=== PATIENT | male | born 1950 | race Caucasian/White ===

== ENCOUNTER → 2017-01-10 | Outpatient (CLI) | payer MEDICARE, OTHER ==
[~2017-01-10] MED LIST: ASPI-515 PO; ATOR10TA9 PO; ATOR40TA78 PO; CLOP75TA PO; GLYB5TAB3 PO; LISI-170 PO; OMNIPAQUE 350 MG/ML, 100ML BOTTLE ONE
== END | disposition home or self-care (01) ==
LOC: CFH 14:04
PROVIDERS: ATTEND Psychiatry & Neurology Neurology
DX: I65.23 Occlusion and stenosis of bilateral carotid arteries (principal)
CPT/HCPCS: 70496; 70498; 82565; Q9967

== ENCOUNTER → 2017-03-21 | Outpatient (CLI) | payer MEDICARE, OTHER ==
[~2017-03-21] MED LIST changes: +DAPA10TA PO
== END | disposition home or self-care (01) ==
LOC: RAD 14:17
DX: C15.9 Malignant neoplasm of esophagus, unspecified (principal); E11.9 Type 2 diabetes mellitus without complications; J84.10 Pulmonary fibrosis, unspecified; R16.0 Hepatomegaly, not elsewhere classified; R59.0 Localized enlarged lymph nodes; M51.37 Other intervertebral disc degeneration, lumbosacral region; I70.0 Atherosclerosis of aorta; N28.1 Cyst of kidney, acquired; S22.42XA Multiple fractures of ribs, left side, initial encounter for closed fracture; X58.XXXA Exposure to other specified factors, initial encounter; Y93.89 Activity, other specified; Y92.89 Other specified places as the place of occurrence of the external cause; Y99.8 Other external cause status
CPT/HCPCS: 71260; 74160; Q9967

== ENCOUNTER → 2017-03-26 | Outpatient (CLI) | payer MEDICARE, OTHER ==
[~2017-03-26] MED LIST changes: -OMNIPAQUE 350 MG/ML, 100ML BOTTLE ONE
== END | disposition home or self-care (01) ==
LOC: ROC 09:58
PROVIDERS: ATTEND Radiology Radiation Oncology
DX: C15.9 Malignant neoplasm of esophagus, unspecified (principal); K21.9 Gastro-esophageal reflux disease without esophagitis; I10 Essential (primary) hypertension; E11.9 Type 2 diabetes mellitus without complications
CPT/HCPCS: G0463

== ENCOUNTER 2017-04-01 11:38 | Day surgery (SDC) | payer MEDICARE, OTHER ==
[~2017-04-01] VITALS: Ht 182.9 cm; Wt 75.3 kg
[2017-04-01] MEDS ORDERED: LACTATED RINGERS 1,000 ML IV SCH (12:01)
[2017-04-01 12:19] VITALS: BP 102/70
[2017-04-01 13:14] LABS: ALANINE AMINOTRANSFERASE 27 U/L (12-78); ALBUMIN 3.4 g/dL (3.4-5.0); ANION GAP 7 mmol/L (5-15); CALCIUM 8.7 mg/dL (8.5-10.1); CHLORIDE 104 mmol/L (98-107); CREATININE 0.87 mg/dL (0.7-1.3)
[2017-04-01 13:16] LABS: ALKALINE PHOSPHATASE 124 U/L (45-117); BILIRUBIN,TOTAL 0.4 mg/dL (0.2-1.0); TOTAL PROTEIN 7.3 g/dL (6.4-8.2)
[2017-04-01] MEDS ORDERED: FENTANYL PF 100 MCG/2ML ONE (13:23)
[2017-04-01] MEDS ORDERED: PROPOFOL 10 MG/ML, 20ML ONE ×2 (13:23→14:27)
[2017-04-01] MEDS ORDERED: OXYcodone 5 MG/5 ML ORAL.SOL UDC PO PRN (13:30)
[2017-04-01] MEDS ORDERED: ACETAMINOPHEN 325 MG TABLET PO PRN (13:30)
[2017-04-01] MEDS ORDERED: LABETALOL 5MG/ML, 20ML IV PRN (13:30)
[2017-04-01] MEDS ORDERED: METOPROLOL 1 MG/ML, 5ML IV PRN (13:30)
[2017-04-01] MEDS ORDERED: hydrALAzine 20 MG/ML, 1ML IV PRN (13:30)
[2017-04-01] MEDS ORDERED: ONDANSETRON 2MG/ML, 2ML IVPush PRN (13:30)
[2017-04-01] MEDS ORDERED: EPHEDRINE 50 MG/ML, 1ML IVPush PRN (13:30)
[2017-04-01] MEDS ORDERED: FENTANYL PF 100 MCG/2ML IV PRN (13:30)
[2017-04-01] MEDS ORDERED: ALBUTEROL SULFATE 2.5 MG/3 ML NPPB PRN (13:30)
== END 2017-04-01 16:50 | disposition home or self-care (01) ==
LOC: OUT 11:38
PROVIDERS: ATTEND Internal Medicine
DX: R13.10 Dysphagia, unspecified (principal); I10 Essential (primary) hypertension; E11.9 Type 2 diabetes mellitus without complications; Z87.891 Personal history of nicotine dependence; Z86.010 Personal history of colon polyps; Z86.718 Personal history of other venous thrombosis and embolism
CPT/HCPCS: 36415; 43266; 71045; 76000; 80053; 82962; C1725; C1769; C1876; J2704; J3010

== ENCOUNTER → 2017-04-09 | Outpatient (CLI) | payer MEDICARE, OTHER | END | disposition home or self-care (01) | LOC: CFH 09:52 | PROVIDERS: ATTEND Radiology Radiation Oncology | DX: C79.51 Secondary malignant neoplasm of bone (principal); C15.5 Malignant neoplasm of lower third of esophagus; M16.0 Bilateral primary osteoarthritis of hip; N40.0 Benign prostatic hyperplasia without lower urinary tract symptoms ==

== ENCOUNTER → 2017-04-11 | Outpatient (CLI) | payer MEDICARE, OTHER ==
[~2017-04-11] MED LIST changes: +CHOL200024 PO; +SERT100T PO
[2017-04-11 10:52] LABS: ALANINE AMINOTRANSFERASE 27 U/L (12-78); ALBUMIN 3.3 g/dL (3.4-5.0); ANION GAP 8 mmol/L (5-15); CALCIUM 8.4 mg/dL (8.5-10.1); CHLORIDE 107 mmol/L (98-107); CREATININE 0.84 mg/dL (0.7-1.3)
[2017-04-11 10:54] LABS: ALKALINE PHOSPHATASE 104 U/L (45-117); BILIRUBIN,TOTAL 0.3 mg/dL (0.2-1.0); TOTAL PROTEIN 7.3 g/dL (6.4-8.2)
== END | disposition home or self-care (01) ==
LOC: STAR 09:39
PROVIDERS: ATTEND Surgery
DX: Z01.818 Encounter for other preprocedural examination (principal); I45.10 Unspecified right bundle-branch block
CPT/HCPCS: 36415; 80053; 93005

== ENCOUNTER 2017-04-15 16:04 | Inpatient (IN) | payer MEDICARE, OTHER ==
[~2017-04-15] VITALS: Ht 180.3 cm; Wt 78.0 kg
[2017-04-15] MEDS ORDERED: SODIUM CHLORIDE 0.9% 1,000 ML IV ONE (16:07)
[2017-04-15] MEDS ORDERED: SODIUM CHLORIDE FLUSH 10ML SYR IVF ONE (16:30)
[2017-04-15] MEDS ORDERED: SODIUM CHLORIDE 0.9% 1,000ML IVBOLUS ONE (16:30)
[2017-04-15 17:00] LABS: ALBUMIN 3.2 g/dL (3.4-5.0); ANION GAP 8 mmol/L (5-15); CALCIUM 8.4 mg/dL (8.5-10.1); CHLORIDE 107 mmol/L (98-107); CREATININE 0.83 mg/dL (0.7-1.3)
[2017-04-15 17:04] LABS: TROPONIN I 0.099 ng/mL (0.000-0.045)
[2017-04-15 17:22] LABS: BASOPHILS # (AUTO) 0.02 x10^3/uL (0-0.1); BASOPHILS % (AUTO) 0 % (0-1); EOSINOPHILS % (AUTO) 0 % (1-7); LYMPHOCYTES # (AUTO) 1.08 x10^3/uL (1-3.4); LYMPHOCYTES % (AUTO) 6 % (22-44); MD MORPH REVIEW ONLY; MEAN CORPUSCULAR HGB CONC 31.2 g/dL (33.2-36.2); MEAN CORPUSCULAR VOLUME 64.3 fL (81-97); MEAN PLATELET VOLUME 6.8 fL (7.4-10.4); MONOCYTES % (AUTO) 5 % (2-9); NEUTROPHILS # (AUTO) 16.02 x10^3/uL (1.8-6.8); NEUTROPHILS % (AUTO) 89 % (42-75); PLATELET COUNT 471 x10^3/uL (130-400); RED BLOOD COUNT 5.02 x10^6/uL (4.38-5.82); RED CELL DISTRIBUTION WIDTH 20.4 % (9.4-14.8)
[2017-04-15 17:23] LABS: ANISOCYTOSIS 1+; MICROCYTOSIS 1+
[2017-04-15 17:24] LABS: <PLATELET ESTIMATE> ADEQUATE; <PLT MORPHOLOGY> NORMAL PLT MORPH; OVALOCYTES 1+; POLYCHROMASIA 1+; SCHISTOCYTES 1+
[2017-04-15] MEDS ORDERED: ASPIRIN 81 MG TABLET CHEW PO ONE (17:30)
[2017-04-15] MEDS ORDERED: ASPIRIN 81 MG TABLET CHEW ONE (18:05)
[2017-04-15] MEDS ORDERED: OMNIPAQUE 350 MG/ML, 100ML BOTTLE ONE (18:07)
[2017-04-15] MEDS ORDERED: POLYETHYLENE GLYCOL 17 GM PACKET PO PRN (22:30)
[2017-04-15] MEDS ORDERED: ENALAPRILAT 1.25 MG/ML, 2ML IVPush PRN (22:30)
[2017-04-15] MEDS ORDERED: hydrALAzine 20 MG/ML, 1ML IVPush PRN (22:30)
[2017-04-15] MEDS ORDERED: BISACODYL 10 MG SUPP PR PRN (22:30)
[2017-04-15] MEDS ORDERED: morphine SULFATE 10 MG/ML, 1ML IVPush PRN (22:30)
[2017-04-15] MEDS ORDERED: PROMETHAZINE 25 MG/ML, 1ML IM PRN (22:30)
[2017-04-15 23:12] VITALS: BP 117/70
[2017-04-15] MEDS: HEPARIN 5,000 UNITS/ML, 1ML SQ SCH (23:15)
[2017-04-15] MEDS: SODIUM CHLORIDE 0.9% 1,000 ML IV SCH (23:15)
[2017-04-16 00:12] LABS: HEMOGLOBIN A1C 6.3 % (4.2-6.3)
[2017-04-16 00:14] LABS: FREE T4 (FREE THYROXINE) 1.14 ng/dL (0.76-1.46); THYROID STIMULATING HORMONE 1.32 mIU/L (0.358-3.740)
[2017-04-16 00:22] VITALS: BP 121/74
[2017-04-16] MEDS: OXYcodone IR 5MG TABLET PO PRN ×3 (00:25→15:02)
[2017-04-16 03:30] LABS: MEAN CORPUSCULAR HEMOGLOBIN 19.9 pg (27.5-34.5); MEAN CORPUSCULAR HGB CONC 31.1 g/dL (33.2-36.2); MEAN CORPUSCULAR VOLUME 63.9 fL (81-97); MEAN PLATELET VOLUME 6.7 fL (7.4-10.4); PLATELET COUNT 437 x10^3/uL (130-400); RED BLOOD COUNT 4.69 x10^6/uL (4.38-5.82); RED CELL DISTRIBUTION WIDTH 20.5 % (9.4-14.8)
[2017-04-16 03:38] LABS: ALANINE AMINOTRANSFERASE 22 U/L (12-78); ANION GAP 5 mmol/L (5-15); CALCIUM 8.2 mg/dL (8.5-10.1); CHLORIDE 108 mmol/L (98-107); CHOLESTEROL, TOTAL 131 mg/dL (140-239); CREATININE 0.82 mg/dL (0.7-1.3)
[2017-04-16 03:40] LABS: ALKALINE PHOSPHATASE 93 U/L (45-117); BILIRUBIN,TOTAL 0.4 mg/dL (0.2-1.0); CHOL/HDL RATIO 2.9; HDL CHOL % 34 % (26-37); HDL CHOLESTEROL (DIRECT) 45 mg/dL (40-60); LDL CHOLESTEROL,CALCULATED 64 mg/dL (54-169); LDL/HDL RATIO 1.4 (0.5-3.0); TOTAL PROTEIN 6.6 g/dL (6.4-8.2); TRIGLYCERIDES 109 mg/dL (50-200); VLDL CHOLESTEROL 22 mg/dL (0-25)
[2017-04-16 03:41] LABS: TROPONIN I 0.175 ng/mL (0.000-0.045)
[2017-04-16 04:30] LABS: BASOPHILS % (AUTO) 0 % (0-1); EOSINOPHILS % (AUTO) 1 % (1-7); LYMPHOCYTES # (AUTO) 2.47 x10^3/uL (1-3.4); LYMPHOCYTES % (AUTO) 17 % (22-44); MONOCYTES # (AUTO) 1.45 x10^3/uL (0.2-0.8); MONOCYTES % (AUTO) 10 % (2-9); NEUTROPHILS # (AUTO) 10.86 x10^3/uL (1.8-6.8); NEUTROPHILS % (AUTO) 73 % (42-75)
[2017-04-16 04:31] LABS: BASOPHILS # (AUTO) 0.01 x10^3/uL (0-0.1); EOSINOPHILS # (AUTO) 0.21 x10^3/uL (0-0.4); MD SCAN
[2017-04-16] MEDS: HEPARIN 5,000 UNITS/ML, 1ML SQ SCH ×3 (06:30→22:43)
[2017-04-16 07:20] LABS: MICROSCOPIC NOT IND
[2017-04-16 07:23] LABS: CULTURE INDICATED? NO
[2017-04-16] MEDS: SODIUM CHLORIDE 0.9% 1,000 ML IV SCH (08:10)
[2017-04-16] MEDS: SENNA/DOCUSATE TABLET PO SCH (08:10)
[2017-04-16 08:49] VITALS: BP 124/70
[2017-04-16 10:49] LABS: TROPONIN I 0.107 ng/mL (0.000-0.045)
[2017-04-16 14:51] VITALS: BP 144/89
[2017-04-16 18:36] VITALS: BP 164/98
[2017-04-17 01:04] VITALS: BP 146/84
[2017-04-17] MEDS: OXYcodone IR 5MG TABLET PO PRN (03:15)
[2017-04-17 05:02] LABS: MEAN CORPUSCULAR HEMOGLOBIN 19.7 pg (27.5-34.5); MEAN CORPUSCULAR VOLUME 63.6 fL (81-97); MEAN PLATELET VOLUME 7.3 fL (7.4-10.4); PLATELET COUNT 427 x10^3/uL (130-400); RED BLOOD COUNT 5.12 x10^6/uL (4.38-5.82); RED CELL DISTRIBUTION WIDTH 20.8 % (9.4-14.8)
[2017-04-17 05:10] LABS: ANION GAP 9 mmol/L (5-15); CALCIUM 8.8 mg/dL (8.5-10.1); CHLORIDE 106 mmol/L (98-107)
[2017-04-17 05:11] LABS: CREATININE 0.69 mg/dL (0.7-1.3)
[2017-04-17 05:41] LABS: BASOPHILS # (AUTO) 0.04 x10^3/uL (0-0.1); BASOPHILS % (AUTO) 0 % (0-1); EOSINOPHILS # (AUTO) 0.29 x10^3/uL (0-0.4); EOSINOPHILS % (AUTO) 2 % (1-7); LYMPHOCYTES # (AUTO) 1.73 x10^3/uL (1-3.4); LYMPHOCYTES % (AUTO) 13 % (22-44); MD SCAN; MONOCYTES # (AUTO) 1.29 x10^3/uL (0.2-0.8); MONOCYTES % (AUTO) 10 % (2-9); NEUTROPHILS # (AUTO) 9.56 x10^3/uL (1.8-6.8); NEUTROPHILS % (AUTO) 74 % (42-75)
[2017-04-17] MEDS: HEPARIN 5,000 UNITS/ML, 1ML SQ SCH ×2 (06:11→16:01)
[2017-04-17 07:18] VITALS: BP 138/88
[2017-04-17] MEDS: ONDANSETRON 2MG/ML, 2ML IVPush PRN ×2 (09:43→16:01)
[2017-04-17] MEDS: SENNA/DOCUSATE TABLET PO SCH (09:43)
[2017-04-17 10:23] LABS: INTERNATIONAL NORMALIZED RATIO 1.16 (0.93-1.1)
[2017-04-17 13:59] VITALS: BP 133/85
[2017-04-17] MEDS ORDERED: MAGNESIUM CITRATE 300ML ORAL SOL PO ONE (14:00)
[2017-04-17] MEDS: BISACODYL 10 MG SUPP PR SCH (15:14)
[2017-04-17 19:19] VITALS: BP 159/106
[2017-04-17 20:13] VITALS: BP 102/63
[2017-04-17 20:30] VITALS: BP 153/82
[2017-04-18] MEDS: HEPARIN 5,000 UNITS/ML, 1ML SQ SCH ×3 (00:36→13:06)
[2017-04-18 00:40] VITALS: BP 159/98
[2017-04-18] MEDS: ONDANSETRON 2MG/ML, 2ML IVPush PRN (01:58)
[2017-04-18 07:05] VITALS: BP 136/87
[2017-04-18] MEDS: SENNA/DOCUSATE TABLET PO SCH (08:11)
[2017-04-18] MEDS: BISACODYL 10 MG SUPP PR SCH (08:19)
[2017-04-18] MEDS ORDERED: METOCLOPRAMIDE 5 MG/ML, 2ML IVPush ONE (10:00)
[2017-04-18 13:10] VITALS: BP 129/87
[2017-04-18] MEDS: PANTOPRAZOLE 40 MG IV IVPush SCH (13:16)
[2017-04-18] MEDS ORDERED: NALOXONE 1 MG/ML, 2ML ONE (13:42)
[2017-04-18] MEDS ORDERED: FENTANYL PF 100 MCG/2ML ONE (13:42)
[2017-04-18] MEDS ORDERED: FLUMAZENIL 0.1 MG/1 ML, 5ML ONE (13:42)
[2017-04-18] MEDS ORDERED: MIDAZOLAM 1 MG/ML, 5ML ONE ×2 (13:42)
[2017-04-18] MEDS ORDERED: LIDOCAINE 1%, 20ML ONE (13:51)
[2017-04-18] MEDS: D5%-0.45NACL+KCL 20MEQ 1,000 ML IV SCH (16:11)
[2017-04-18 19:06] VITALS: BP 149/93
[2017-04-19 00:19] VITALS: BP 143/92
[2017-04-19] MEDS: HEPARIN 5,000 UNITS/ML, 1ML SQ SCH (00:30)
[2017-04-19] MEDS: PANTOPRAZOLE 40 MG IV IVPush SCH ×2 (00:57→13:24)
[2017-04-19] MEDS: D5%-0.45NACL+KCL 20MEQ 1,000 ML IV SCH ×2 (05:01→21:04)
[2017-04-19 05:14] LABS: ANION GAP 6 mmol/L (5-15); CHLORIDE 105 mmol/L (98-107)
[2017-04-19 05:19] LABS: CREATININE 1.08 mg/dL (0.7-1.3)
[2017-04-19 05:39] LABS: MEAN CORPUSCULAR HEMOGLOBIN 19.9 pg (27.5-34.5); MEAN CORPUSCULAR HGB CONC 31.3 g/dL (33.2-36.2); MEAN CORPUSCULAR VOLUME 63.7 fL (81-97); MEAN PLATELET VOLUME 7.4 fL (7.4-10.4); PLATELET COUNT 469 x10^3/uL (130-400); RED BLOOD COUNT 4.95 x10^6/uL (4.38-5.82)
[2017-04-19 06:19] LABS: MD YES
[2017-04-19 06:21] LABS: ANISOCYTOSIS 2+; BAND#(MANUAL) 0.77 x10^3/uL; BANDS%(MANUAL) 3 % (0-7); LYMPH#(MANUAL) 1.81 x10^3/uL (1-3.4); LYMPHS% (MANUAL) 7 % (22-44); MICROCYTOSIS 1+; MONOS#(MANUAL) 2.32 x10^3/uL (0.3-2.7); MONOS% (MANUAL) 9 % (2-9); POLYCHROMASIA 1+; SEGS% (MANUAL) 81 % (42-75)
[2017-04-19 06:22] LABS: OVALOCYTES 1+; SCHISTOCYTES 1+
[2017-04-19 06:24] LABS: <PLATELET ESTIMATE> ADEQUATE; LARGE PLATELETS 1+
[2017-04-19 07:09] VITALS: BP 128/81
[2017-04-19] MEDS: BISACODYL 10 MG SUPP PR SCH (08:18)
[2017-04-19] MEDS: SENNA/DOCUSATE TABLET PO SCH (08:23)
[2017-04-19] MEDS ORDERED: SODIUM CHLORIDE 0.9%, 500ML IVBOLUS ONE ×2 (09:00)
[2017-04-19] MEDS ORDERED: BENZOCAINE 20% SPRAY 0.5ML ONE (11:32)
[2017-04-19] MEDS ORDERED: LIDOCAINE GEL 2%, 5ML ONE (11:32)
[2017-04-19] MEDS ORDERED: OMNIPAQUE 350 MG/ML, 100ML BOTTLE ONE (12:25)
[2017-04-19] MEDS ORDERED: VANCOMYCIN PER PHARMACY MC PRN (13:30)
[2017-04-19 13:33] VITALS: BP 130/87
[2017-04-19] MEDS ORDERED: PHARMACOKINETIC MONITORING MC PRN (14:00)
[2017-04-19] MEDS ORDERED: PHARMACOKINETIC CONSULTATION MC ONE (14:00)
[2017-04-19] MEDS: PIPERACILLIN/TAZO/PMX 3.375GM 50 ML IV SCH ×2 (14:11→21:04)
[2017-04-19] MEDS: VANCOMYCIN 1,400 MG in SODIUM CHLORIDE 0.9% 250 ML IV SCH (14:50)
[2017-04-19] MEDS: OXYcodone IR 5MG TABLET PO PRN (15:12)
[2017-04-19 18:38] VITALS: BP 118/77
[2017-04-20 01:38] VITALS: BP 102/65
[2017-04-20] MEDS: PIPERACILLIN/TAZO/PMX 3.375GM 50 ML IV SCH ×4 (01:53→21:38)
[2017-04-20] MEDS: PANTOPRAZOLE 40 MG IV IVPush SCH ×2 (01:53→14:12)
[2017-04-20 02:25] LABS: MICROSCOPIC NOT IND
[2017-04-20 02:30] LABS: CULTURE INDICATED? NO
[2017-04-20 05:09] LABS: MEAN CORPUSCULAR HGB CONC 31.2 g/dL (33.2-36.2); MEAN CORPUSCULAR VOLUME 64.3 fL (81-97); MEAN PLATELET VOLUME 7.2 fL (7.4-10.4); PLATELET COUNT 415 x10^3/uL (130-400); RED BLOOD COUNT 4.21 x10^6/uL (4.38-5.82); RED CELL DISTRIBUTION WIDTH 21.7 % (9.4-14.8)
[2017-04-20 05:16] LABS: ANION GAP 5 mmol/L (5-15); CALCIUM 8.5 mg/dL (8.5-10.1); CHLORIDE 109 mmol/L (98-107); CREATININE 0.85 mg/dL (0.7-1.3)
[2017-04-20 05:37] LABS: MD YES
[2017-04-20 05:38] LABS: BASOS#(MANUAL) 0.18 x10^3/uL (0-0.1); BASOS% (MANUAL) 1 % (0-1); EOS#(MANUAL) 0.91 x10^3/uL (0.0-0.4); EOS% (MANUAL) 5 % (1-7); LYMPH#(MANUAL) 1.27 x10^3/uL (1-3.4); LYMPHS% (MANUAL) 7 % (22-44); MONOS#(MANUAL) 1.09 x10^3/uL (0.3-2.7); MONOS% (MANUAL) 6 % (2-9); SEG#(MANUAL) 14.66 x10^3/uL (1.8-6.8); SEGS% (MANUAL) 81 % (42-75)
[2017-04-20 05:39] LABS: ANISOCYTOSIS 2+; MICROCYTOSIS 1+; OVALOCYTES 1+; POLYCHROMASIA 1+
[2017-04-20 05:42] LABS: <PLATELET ESTIMATE> ADEQUATE; <PLT MORPHOLOGY> NORMAL PLT MORPH
[2017-04-20 06:40] VITALS: BP 129/79
[2017-04-20] MEDS: SENNA/DOCUSATE TABLET PO SCH (09:00)
[2017-04-20] MEDS ORDERED: PROPOFOL 10 MG/ML, 50ML ONE (11:31)
[2017-04-20] MEDS ORDERED: PROPOFOL 10 MG/ML, 20ML ONE (11:31)
[2017-04-20] MEDS ORDERED: hydrALAzine 20 MG/ML, 1ML IV PRN (13:00)
[2017-04-20] MEDS ORDERED: MIDAZOLAM 1 MG/ML, 2ML IV PRN (13:00)
[2017-04-20] MEDS ORDERED: ONDANSETRON 2MG/ML, 2ML IVPush PRN (13:00)
[2017-04-20] MEDS ORDERED: FENTANYL PF 100 MCG/2ML IV PRN (13:00)
[2017-04-20 14:37] VITALS: BP 111/67
[2017-04-20] MEDS: BISACODYL 10 MG SUPP PR SCH (14:43)
[2017-04-20] MEDS: VANCOMYCIN 1,400 MG in SODIUM CHLORIDE 0.9% 250 ML IV SCH (14:44)
[2017-04-20] MEDS: D5%-0.45NACL+KCL 20MEQ 1,000 ML IV SCH (16:46)
[2017-04-20] MEDS: IRON SUCROSE COMPLEX 100MG/5ML IV SCH (17:40)
[2017-04-20 20:20] VITALS: BP 121/79
[2017-04-21 01:52] VITALS: BP 124/77
[2017-04-21] MEDS: PIPERACILLIN/TAZO/PMX 3.375GM 50 ML IV SCH ×3 (03:09→18:05)
[2017-04-21] MEDS: PANTOPRAZOLE 40 MG IV IVPush SCH ×2 (03:09→13:37)
[2017-04-21 05:14] LABS: MEAN CORPUSCULAR HEMOGLOBIN 20.2 pg (27.5-34.5); MEAN CORPUSCULAR HGB CONC 31.4 g/dL (33.2-36.2); MEAN CORPUSCULAR VOLUME 64.4 fL (81-97); MEAN PLATELET VOLUME 7.1 fL (7.4-10.4); PLATELET COUNT 411 x10^3/uL (130-400); RED BLOOD COUNT 4.09 x10^6/uL (4.38-5.82); RED CELL DISTRIBUTION WIDTH 20.5 % (9.4-14.8)
[2017-04-21 05:21] LABS: CHLORIDE 109 mmol/L (98-107)
[2017-04-21 05:26] LABS: ALANINE AMINOTRANSFERASE 21 U/L (12-78); ALBUMIN 2.5 g/dL (3.4-5.0); ALKALINE PHOSPHATASE 71 U/L (45-117); ANION GAP 9 mmol/L (5-15); BILIRUBIN,TOTAL 0.4 mg/dL (0.2-1.0); CALCIUM 8.1 mg/dL (8.5-10.1); CREATININE 0.76 mg/dL (0.7-1.3); TOTAL PROTEIN 6.4 g/dL (6.4-8.2)
[2017-04-21 05:50] LABS: <PLATELET ESTIMATE> INCREASED; <PLT MORPHOLOGY> NORMAL PLT MORPH; ANISOCYTOSIS 2+; BASOPHILS % (AUTO) 0 % (0-1); EOSINOPHILS # (AUTO) 0.96 x10^3/uL (0-0.4); EOSINOPHILS % (AUTO) 7 % (1-7); LYMPHOCYTES # (AUTO) 1.36 x10^3/uL (1-3.4); LYMPHOCYTES % (AUTO) 10 % (22-44); MD MORPH REVIEW ONLY; MONOCYTES # (AUTO) 1.11 x10^3/uL (0.2-0.8); MONOCYTES % (AUTO) 8 % (2-9); NEUTROPHILS # (AUTO) 9.95 x10^3/uL (1.8-6.8); NEUTROPHILS % (AUTO) 74 % (42-75); OVALOCYTES 1+; POLYCHROMASIA 1+
[2017-04-21 05:55] LABS: MICROCYTOSIS 1+
[2017-04-21 06:27] VITALS: BP 115/72
[2017-04-21] MEDS: IRON SUCROSE COMPLEX 100MG/5ML IV SCH (10:05)
[2017-04-21] MEDS: BISACODYL 10 MG SUPP PR SCH (10:06)
[2017-04-21] MEDS: SENNA/DOCUSATE TABLET PO SCH (10:06)
[2017-04-21 13:02] VITALS: BP 118/83
[2017-04-21] MEDS: VANCOMYCIN 1,400 MG in SODIUM CHLORIDE 0.9% 250 ML IV SCH (15:25)
[2017-04-21] MEDS: D5%-0.45NACL+KCL 20MEQ 1,000 ML IV SCH (15:25)
[2017-04-21 19:23] VITALS: BP 130/77
[2017-04-22 00:21] VITALS: BP 113/73
[2017-04-22] MEDS: PANTOPRAZOLE 40 MG IV IVPush SCH ×2 (00:32→15:23)
[2017-04-22] MEDS: PIPERACILLIN/TAZO/PMX 3.375GM 50 ML IV SCH ×5 (00:32→23:49)
[2017-04-22 04:52] LABS: MEAN CORPUSCULAR HEMOGLOBIN 19.8 pg (27.5-34.5); MEAN CORPUSCULAR HGB CONC 30.8 g/dL (33.2-36.2); MEAN CORPUSCULAR VOLUME 64.3 fL (81-97); MEAN PLATELET VOLUME 7.2 fL (7.4-10.4); PLATELET COUNT 457 x10^3/uL (130-400); RED BLOOD COUNT 4.36 x10^6/uL (4.38-5.82); RED CELL DISTRIBUTION WIDTH 21.3 % (9.4-14.8)
[2017-04-22 04:54] LABS: ALANINE AMINOTRANSFERASE 23 U/L (12-78); ALBUMIN 2.7 g/dL (3.4-5.0); ANION GAP 8 mmol/L (5-15); CALCIUM 8.6 mg/dL (8.5-10.1); CHLORIDE 107 mmol/L (98-107); CREATININE 0.94 mg/dL (0.7-1.3)
[2017-04-22 04:56] LABS: ALKALINE PHOSPHATASE 74 U/L (45-117); BILIRUBIN,TOTAL 0.4 mg/dL (0.2-1.0); TOTAL PROTEIN 7.2 g/dL (6.4-8.2)
[2017-04-22 05:58] LABS: BASOPHILS % (AUTO) 0 % (0-1); EOSINOPHILS # (AUTO) 0.87 x10^3/uL (0-0.4); EOSINOPHILS % (AUTO) 6 % (1-7); LYMPHOCYTES # (AUTO) 1.46 x10^3/uL (1-3.4); LYMPHOCYTES % (AUTO) 11 % (22-44); MD SCAN; MONOCYTES # (AUTO) 1.07 x10^3/uL (0.2-0.8); MONOCYTES % (AUTO) 8 % (2-9); NEUTROPHILS # (AUTO) 10.36 x10^3/uL (1.8-6.8); NEUTROPHILS % (AUTO) 75 % (42-75)
[2017-04-22 08:00] VITALS: BP 132/80
[2017-04-22] MEDS: POLYETHYLENE GLYCOL 17 GM PACKET PO SCH ×3 (10:00→21:00)
[2017-04-22] MEDS: IRON SUCROSE COMPLEX 100MG/5ML IV SCH (10:36)
[2017-04-22] MEDS: VANCOMYCIN 1,400 MG in SODIUM CHLORIDE 0.9% 250 ML IV SCH (10:37)
[2017-04-22 13:10] VITALS: BP 113/72
[2017-04-22 19:35] VITALS: BP 133/81
[2017-04-22] MEDS ORDERED: ATORVASTATIN 40 MG TABLET PO SCH (21:00)
[2017-04-23] MEDS: PANTOPRAZOLE 40 MG IV IVPush SCH ×2 (01:18→13:24)
[2017-04-23 02:00] VITALS: BP 117/76
[2017-04-23] MEDS: VANCOMYCIN 1,400 MG in SODIUM CHLORIDE 0.9% 250 ML IV SCH (02:29)
[2017-04-23 05:37] LABS: BASOPHILS # (AUTO) 0.07 x10^3/uL (0-0.1); BASOPHILS % (AUTO) 1 % (0-1); EOSINOPHILS % (AUTO) 6 % (1-7); LYMPHOCYTES # (AUTO) 1.55 x10^3/uL (1-3.4); LYMPHOCYTES % (AUTO) 11 % (22-44); MD NO; MEAN CORPUSCULAR HEMOGLOBIN 20.3 pg (27.5-34.5); MEAN CORPUSCULAR HGB CONC 31.1 g/dL (33.2-36.2); MEAN CORPUSCULAR VOLUME 65.1 fL (81-97); MEAN PLATELET VOLUME 7.2 fL (7.4-10.4); MONOCYTES # (AUTO) 1.33 x10^3/uL (0.2-0.8); MONOCYTES % (AUTO) 10 % (2-9); NEUTROPHILS # (AUTO) 10.07 x10^3/uL (1.8-6.8); NEUTROPHILS % (AUTO) 73 % (42-75); PLATELET COUNT 455 x10^3/uL (130-400); RED BLOOD COUNT 4.09 x10^6/uL (4.38-5.82); RED CELL DISTRIBUTION WIDTH 21.2 % (9.4-14.8)
[2017-04-23 05:48] LABS: ALBUMIN 2.4 g/dL (3.4-5.0); ANION GAP 9 mmol/L (5-15); CALCIUM 8.1 mg/dL (8.5-10.1); CHLORIDE 112 mmol/L (98-107)
[2017-04-23 05:52] LABS: ALANINE AMINOTRANSFERASE 20 U/L (12-78); ALKALINE PHOSPHATASE 62 U/L (45-117); BILIRUBIN,TOTAL 0.7 mg/dL (0.2-1.0); CREATININE 0.85 mg/dL (0.7-1.3); TOTAL PROTEIN 6.4 g/dL (6.4-8.2)
[2017-04-23] MEDS: PIPERACILLIN/TAZO/PMX 3.375GM 50 ML IV SCH ×2 (06:26→13:23)
[2017-04-23 07:38] VITALS: BP 129/83
[2017-04-23] MEDS ORDERED: SERTRALINE 50MG TABLET PO SCH (09:00)
[2017-04-23] MEDS ORDERED: LISINOPRIL 5 MG TABLET PO SCH (09:00)
[2017-04-23] MEDS ORDERED: CHOLECALCIFEROL 1,000 UNIT TABLET PO SCH (09:00)
[2017-04-23] MEDS ORDERED: CLOPIDOGREL 75 MG TABLET PO SCH (09:00)
[2017-04-23] MEDS: POLYETHYLENE GLYCOL 17 GM PACKET PO SCH (09:00)
[2017-04-23] MEDS: IRON SUCROSE COMPLEX 100MG/5ML IV SCH (10:01)
[2017-04-23 12:48] VITALS: BP 129/81
[2017-04-23] MEDS ORDERED: FERR324T8 PO (14:29)
[2017-04-23] MEDS ORDERED: LINE600T37 PO (14:29)
[2017-04-23] MEDS ORDERED: CEFD300C37 PO (14:29)
[2017-04-23] MEDS ORDERED: LISI5TAB7 PO (14:29)
== END 2017-04-23 18:51 | disposition home or self-care (01) | DRG 477 ==
LOC: ED 18:19 → EDIP 18:20 → ED 18:29 → 5SO 22:32 → 3NW 04-21 17:38
PROVIDERS: ADMIT Internal Medicine; ATTEND Internal Medicine
PROC: 0QB63ZX Excision of Right Upper Femur, Percutaneous Approach, Diagnostic (ICD-10-PCS; 2017-04-18)
PROC: 0D9670Z Drainage of Stomach with Drainage Device, Via Natural or Artificial Opening (ICD-10-PCS; principal; 2017-04-19)
PROC: 0W3P8ZZ Control Bleeding in Gastrointestinal Tract, Via Natural or Artificial Opening Endoscopic (ICD-10-PCS; 2017-04-20)
DX: C79.51 Secondary malignant neoplasm of bone (principal); J69.0 Pneumonitis due to inhalation of food and vomit; K56.600 Partial intestinal obstruction, unspecified as to cause; E44.0 Moderate protein-calorie malnutrition; K25.4 Chronic or unspecified gastric ulcer with hemorrhage; C15.9 Malignant neoplasm of esophagus, unspecified; T85.628A Displacement of other specified internal prosthetic devices, implants and grafts, initial encounter; K56.7 Ileus, unspecified; I24.8 Other forms of acute ischemic heart disease; J98.11 Atelectasis; E11.51 Type 2 diabetes mellitus with diabetic peripheral angiopathy without gangrene; K66.8 Other specified disorders of peritoneum; I65.01 Occlusion and stenosis of right vertebral artery; D50.9 Iron deficiency anemia, unspecified; E78.5 Hyperlipidemia, unspecified; F41.1 Generalized anxiety disorder; F32.9 Major depressive disorder, single episode, unspecified; I11.9 Hypertensive heart disease without heart failure; I45.10 Unspecified right bundle-branch block; I70.8 Atherosclerosis of other arteries; I77.810 Thoracic aortic ectasia; E86.0 Dehydration; K76.89 Other specified diseases of liver; R09.02 Hypoxemia; R13.10 Dysphagia, unspecified; Z79.82 Long term (current) use of aspirin; Z79.02 Long term (current) use of antithrombotics/antiplatelets; Z85.01 Personal history of malignant neoplasm of esophagus; Z86.010 Personal history of colon polyps; Z87.891 Personal history of nicotine dependence; Z68.24 Body mass index [BMI] 24.0-24.9, adult; K94.29 Other complications of gastrostomy
CPT/HCPCS: 20225; 36415; 70496; 70498; 70551; 71045; 71275; 74018; 74021; 74176; 74340; 77001; 77012; 80048; 80053; 80061; 80202; 81003; 82040; 82306; 82607; 82728; 82962; 83036; 83540; 83550; 83735; 84100; 84439; 84443; 84466; 84484; 85014; 85018; 85025; 85610; 87040; 88305; 88311; 93005; 93306; 93880; 96360; 99156; 99157; J1644; J1756; J2250; J2405; J2543; J2550; J2704; J3010; J3370; J3490; Q9967; C9113; J0360; J2310; J2765; J3480; J7030; J7040; J7050

== ENCOUNTER 2017-04-26 10:25 | Emergency (ER) | payer MEDICARE, OTHER ==
[~2017-04-26] VITALS: Ht 182.9 cm; Wt 70.5 kg
[~2017-04-26 10:25] MED LIST changes: +CEFD300C37 PO; +FERR324T8 PO; +LINE600T37 PO; +LISI5TAB7 PO
[2017-04-26] MEDS ORDERED: BACITRACIN ZINC OINT 500U/GM, 0.9 GM ONE (13:24)
[2017-04-26 13:30] VITALS: BP 111/71
== END 2017-04-26 13:31 | disposition home or self-care (01) ==
LOC: ED 10:58
DX: Z46.59 Encounter for fitting and adjustment of other gastrointestinal appliance and device (principal); I10 Essential (primary) hypertension; E11.9 Type 2 diabetes mellitus without complications; Z87.891 Personal history of nicotine dependence
CPT/HCPCS: 43760; 74340; 99284

== ENCOUNTER 2017-04-29 23:33 | Emergency (ER) | payer MEDICARE, OTHER ==
[~2017-04-29] VITALS: Ht 182.9 cm; Wt 72.0 kg
[2017-04-29] MEDS ORDERED: LIDOCAINE-MPF 2% ,5ML ONE (23:58)
[2017-04-30] MEDS ORDERED: ACETAMINOPHEN 500 MG TABLET ONE (03:25)
[2017-04-30 04:38] VITALS: BP 134/88
== END 2017-04-30 04:08 | disposition home or self-care (01) ==
LOC: ED 04-30 01:21
DX: Z46.59 Encounter for fitting and adjustment of other gastrointestinal appliance and device (principal); I10 Essential (primary) hypertension; E11.9 Type 2 diabetes mellitus without complications; C16.9 Malignant neoplasm of stomach, unspecified; F41.9 Anxiety disorder, unspecified
CPT/HCPCS: 74018; 74176; 99284

== ENCOUNTER → 2017-04-29 | Outpatient (CLI) | payer MEDICARE, OTHER | END | disposition home or self-care (01) | LOC: CFH 10:45 | PROVIDERS: ATTEND Radiology Radiation Oncology | DX: C15.5 Malignant neoplasm of lower third of esophagus (principal); R19.7 Diarrhea, unspecified; I10 Essential (primary) hypertension | CPT/HCPCS: 71046 ==

== ENCOUNTER → 2017-04-29 | Outpatient (CLI) | payer MEDICARE, OTHER | END | disposition home or self-care (01) | LOC: ROC 08:22 | PROVIDERS: ATTEND Radiology Radiation Oncology | DX: C15.9 Malignant neoplasm of esophagus, unspecified (principal) | CPT/HCPCS: G0463 ==